=== PATIENT | male | born 1955 | race Caucasian/White ===

== ENCOUNTER 2020-06-13 06:36 | Day surgery (SDC) | payer MEDICARE ==
[~2020-06-13] VITALS: Ht 188 cm; Wt 109.1 kg
[2020-06-13] VITALS (17 sets, daily range): BP systolic 117–157; BP diastolic 73–93
[2020-06-13] MEDS ORDERED: normal saline 1,000 ML IV SCH (07:00)
[2020-06-13] MEDS ORDERED: LORazepam 0.5 MG tablet PO PRN (07:00)
[2020-06-13] MEDS ORDERED: nitroGLYCERIN 0.4mg SUBLingual tab SL PRN (07:00)
[2020-06-13] MEDS ORDERED: diphenhydrAMINE 25mg capsule PO PRN (07:00)
[2020-06-13] MEDS ORDERED: CYCL5TAB PO (07:04)
[2020-06-13] MEDS ORDERED: HAWTHORN BERRY PO (07:04)
[2020-06-13] MEDS ORDERED: WARF7.5T48 PO (07:04)
[2020-06-13] MEDS ORDERED: METO-395 PO (07:04)
[2020-06-13] MEDS ORDERED: AMIT-189 PO (07:04)
[2020-06-13] MEDS ORDERED: probiotic PO (07:04)
[2020-06-13 07:37] LABS: PARTIAL THROMBOPLASTIN TIME 28 SECONDS (22-32)
[2020-06-13] MEDS ORDERED: nitroGLYCERIN-Tridil 50MG/D5W 250 ML IV ONE (08:39)
[2020-06-13] MEDS ORDERED: fentaNYL/PF 50MCG/1 ML 2ML syringe ONE ×2 (08:39→09:14)
[2020-06-13] MEDS ORDERED: heparin 1,000unit/ml 10ml vial 10 ML ONE (08:39)
[2020-06-13] MEDS ORDERED: midazolam 1 mg/ML 2ml injection ONE ×2 (08:39→09:14)
[2020-06-13] MEDS ORDERED: LIDOcaine 1% (10mg/ml)w/preservative injection 20ml MDV ONE (08:39)
[2020-06-13] MEDS ORDERED: iohexol 350 MG/ML 50ML vial IV ONE ×3 (08:39→09:19)
[2020-06-13] MEDS ORDERED: iohexol 350MG/ML 100ml bottle IV ONE (08:40)
[2020-06-13] MEDS ORDERED: HYDROcodone/acetaminophen 10/325mg tab PO PRN (10:20)
[2020-06-13] MEDS ORDERED: HYDROcodone/acetaminophen 5mg/325mg tablet PO PRN (10:20)
[2020-06-13] MEDS ORDERED: OXAZEpam 15mg capsule PO PRN (10:20)
[2020-06-13] MEDS ORDERED: ondansetron/PF 4mg/2ml inj IV PRN (10:20)
[2020-06-13] MEDS ORDERED: normal saline 1000ml 1,000 ML IV SCH (10:20)
[2020-06-13] MEDS ORDERED: proCHLORperazine 10 MG/2 ml inj IV PRN (10:20)
== END 2020-06-13 16:00 | disposition home or self-care (01) ==
LOC: SSTAY O 06:36
PROVIDERS: ATTEND Internal Medicine Cardiovascular Disease
DX: R94.39 Abnormal result of other cardiovascular function study (principal); I25.10 Atherosclerotic heart disease of native coronary artery without angina pectoris; I35.1 Nonrheumatic aortic (valve) insufficiency; I48.91 Unspecified atrial fibrillation; I42.9 Cardiomyopathy, unspecified; I10 Essential (primary) hypertension; M54.30 Sciatica, unspecified side; E78.5 Hyperlipidemia, unspecified; J44.9 Chronic obstructive pulmonary disease, unspecified; F12.90 Cannabis use, unspecified, uncomplicated; Z86.73 Personal history of transient ischemic attack (TIA), and cerebral infarction without residual deficits; Z87.891 Personal history of nicotine dependence; Z79.899 Other long term (current) drug therapy; Z98.890 Other specified postprocedural states; R06.02 Shortness of breath
CPT/HCPCS: 36415; 83880; 85610; 85730; 93005; 93458; 93567; 99152; 99153; C1760; C1769; J1644; J2001; J2250; J3010; J7030; Q0163; Q9967; A4620; A6258; J3490